=== PATIENT | female | born 1985 | race Caucasian/White ===

== ENCOUNTER 2017-12-17 03:32 | Inpatient (IN) | payer SELFPAY ==
[~2017-12-17] VITALS: Ht 160 cm; Wt 56.7 kg
[2017-12-17] VITALS (14 sets, daily range): BP systolic 101–127; BP diastolic 72–81
[2017-12-17 04:51] LABS: HEMATOCRIT. 53.8 % (36.0-48.0); HEMOGLOBIN. 16.9 g/dL (12.0-16.0); MEAN CORPUSCULAR HEMOGLOBIN 31.4 pg (28.0-32.0); MEAN CORPUSCULAR VOLUME 99.9 fL (81.0-99.0); MEAN PLATELET VOLUME 8.4 fl (7.4-10.4); PLATELET 466 x1000/uL (130-400); RED BLOOD CELL COUNT 5.38 mill/uL (4.2-5.4); RED CELL DISTRIBUTION WIDTH 13.3 % (11.6-14.6)
[2017-12-17 05:07] LABS: PARTIAL THROMBOPLASTIN TIME 30.3 sec (23.4-31.0)
[2017-12-17 05:09] LABS: CHLORIDE 86 mEq/L (98-107)
[2017-12-17 05:15] LABS: BETA HYDROXYBUTYRATE 8.8 mMol/L (0.0-0.3)
[2017-12-17] MEDS ORDERED: INSULIN REGULAR (DRIP) 100 UNITS in SODIUM CHLORIDE 0.9% 100 ML IV ONE ×2 (06:00→06:15)
[2017-12-17] MEDS ORDERED: VANCOMYCIN 1 G PREMIX 200 ML IV ONE (06:00)
[2017-12-17] MEDS ORDERED: SODIUM CHLORIDE 0.9% 1000ML BAG (SEPSIS BOLUS) IV ONE (06:00)
[2017-12-17] MEDS ORDERED: PIPERACILLIN/TAZ 3.375G PREMIX 50 ML IV ONE (06:00)
[2017-12-17] MEDS ORDERED: POTASSIUM PHOS,M-BASIC-D-BASIC 20 MMOL in SODIUM CHLORIDE 0.9% 1,000 ML IV ONE (06:30)
[2017-12-17 06:40] LABS: PLATELET ESTIMATE INCREASED
[2017-12-17 08:32] LABS: CHLORIDE 93 mEq/L (98-107)
[2017-12-17 08:38] LABS: PHOSPHORUS 2.4 mg/dL (2.5-4.9)
[2017-12-17] MEDS ORDERED: SODIUM CHL 0.9% + KCL 20MEQ/L 1,000 ML IV SCH (08:45)
[2017-12-17] MEDS: BLOOD SUGAR DIAGNOSTIC STRIP TEST SCH ×10 (10:00→21:33)
[2017-12-17 10:28] LABS: CLARITY URINE CLOUDY (CLEAR); COLOR URINE YELLOW (YELLOW); KETONES URINE 4+ (NEGATIVE); LEUKOCYTE ESTERASE URINE NEGATIVE (NEGATIVE); NITRITE URINE NEGATIVE (NEGATIVE); OCCULT BLOOD URINE 1+ (NEGATIVE); PROTEIN URINE 1+ (NEGATIVE); SPECIFIC GRAVITY URINE 1.029 (1.005-1.030); UROBILINOGEN URINE 0.2 E.U./dL (0.2-1.0)
[2017-12-17] MEDS ORDERED: DEXTROSE 50% WATER 50ML SYRINGE IV PRN ×4 (10:30→10:45)
[2017-12-17] MEDS ORDERED: BLOOD SUGAR DIAGNOSTIC STRIP TEST SCH (10:30)
[2017-12-17 10:42] LABS: CHLORIDE 98 mEq/L (98-107)
[2017-12-17] MEDS: ONDANSETRON HCL 4MG/2ML INJ IV PRN (12:48)
[2017-12-17 12:51] LABS: CHLORIDE 103 mEq/L (98-107)
[2017-12-17] MEDS ORDERED: MORPHINE SULFATE 2 MG/ML CPJ (NOT FOR IM USE) IV PRN (14:45)
[2017-12-17] MEDS: SODIUM CHLORIDE 0.45% 1,000 ML IV SCH ×2 (15:15→23:00)
[2017-12-17] MEDS: INSULIN REGULAR (DRIP) 100 UNITS in SODIUM CHLORIDE 0.9% 99 ML IV SCH ×2 (15:20→22:53)
[2017-12-17 17:20] LABS: CHLORIDE 108 mEq/L (98-107)
[2017-12-17 21:39] LABS: CHLORIDE 111 mEq/L (98-107)
[2017-12-17 22:32] LABS: PHOSPHORUS 0.6 mg/dL (2.5-4.9)
[2017-12-18] VITALS (22 sets, daily range): BP systolic 94–124; BP diastolic 46–71
[2017-12-18 01:29] LABS: CHLORIDE 111 mEq/L (98-107)
[2017-12-18] MEDS: SODIUM CHLORIDE 0.45% 1,000 ML IV SCH ×3 (05:55→20:45)
[2017-12-18 06:55] LABS: CHLORIDE 110 mEq/L (98-107)
[2017-12-18] MEDS: BLOOD SUGAR DIAGNOSTIC STRIP TEST SCH ×8 (07:45→20:41)
[2017-12-18 09:02] LABS: BASOPHILS % 0.9 % (0.0-2.0); HEMATOCRIT. 36.5 % (36.0-48.0); HEMOGLOBIN. 12.8 g/dL (12.0-16.0); LYMPHOCYTES % 23.7 % (20.0-50.0); MEAN CORPUSCULAR HEMOGLOBIN 31.4 pg (28.0-32.0); MEAN CORPUSCULAR VOLUME 89.8 fL (81.0-99.0); MEAN PLATELET VOLUME 7.7 fl (7.4-10.4); MONOCYTES % 11.8 % (2.0-8.0); NEUTROPHILS % 62.6 % (40.0-76.0); PLATELET 333 x1000/uL (130-400); RED BLOOD CELL COUNT 4.07 mill/uL (4.2-5.4)
[2017-12-18] MEDS: PANTOPRAZOLE SODIUM 40 MG/VIAL IV SCH (10:35)
[2017-12-18 13:16] LABS: CHLORIDE 109 mEq/L (98-107)
[2017-12-18] MEDS ORDERED: DEXTROSE 50% WATER 50ML SYRINGE IV PRN (15:00)
[2017-12-18] MEDS ORDERED: BLOOD SUGAR DIAGNOSTIC STRIP TEST SCH (16:00)
[2017-12-18] MEDS: INSULIN LISPRO 100 UNITS/ML SUBCUT SCH ×2 (17:26→20:52)
[2017-12-18] MEDS: INSULIN GLARGINE UD 100 UNITS/ML SYR SUBCUT SCH (17:28)
[2017-12-18 18:59] LABS: CHLORIDE 105 mEq/L (98-107)
[2017-12-18] MEDS: MORPHINE SULFATE 4 MG/ML CPJ (NOT FOR IM USE) IV PRN (20:51)
[2017-12-19] VITALS: BP 96/57
[2017-12-19] MEDS: BLOOD SUGAR DIAGNOSTIC STRIP TEST SCH ×6 (01:06→20:37)
[2017-12-19] MEDS: INSULIN LISPRO 100 UNITS/ML SUBCUT SCH ×6 (01:22→20:41)
[2017-12-19 03:55] VITALS: BP 116/53
[2017-12-19] MEDS: MORPHINE SULFATE 4 MG/ML CPJ (NOT FOR IM USE) IV PRN ×3 (04:01→16:41)
[2017-12-19 07:55] LABS: HEMATOCRIT. 32.3 % (36.0-48.0); HEMOGLOBIN. 11.4 g/dL (12.0-16.0); MEAN CORPUSCULAR HEMOGLOBIN 31.9 pg (28.0-32.0); MEAN CORPUSCULAR VOLUME 90.1 fL (81.0-99.0); MEAN PLATELET VOLUME 7.9 fl (7.4-10.4); PLATELET 317 x1000/uL (130-400); RED BLOOD CELL COUNT 3.58 mill/uL (4.2-5.4); RED CELL DISTRIBUTION WIDTH 13.4 % (11.6-14.6)
[2017-12-19 08:00] VITALS: BP 110/6
[2017-12-19 08:18] LABS: CHLORIDE 105 mEq/L (98-107)
[2017-12-19] MEDS: PANTOPRAZOLE SODIUM 40 MG/VIAL IV SCH (08:49)
[2017-12-19] MEDS ORDERED: POTASSIUM CHLORIDE 20MEQ TABLET SR PO NR (09:00)
[2017-12-19] MEDS ORDERED: PANTOPRAZOLE SODIUM 40 MG/VIAL IV SCH (09:00)
[2017-12-19] MEDS ORDERED: INSULIN GLARGINE UD 100 UNITS/ML SYR SUBCUT SCH (10:00)
[2017-12-19] MEDS ORDERED: DEXT 5% WATER + KCL 40MEQ/L 1,000 ML IV SCH (10:00)
[2017-12-19] MEDS: INSULIN GLARGINE UD 100 UNITS/ML SYR SUBCUT SCH ×2 (10:20→20:41)
[2017-12-19] MEDS ORDERED: POTASSIUM CHLORIDE INJ 40 MEQ in DEXT 5% WATER 250 ML IV SCH (11:00)
[2017-12-19 11:27] LABS: *AMPHETAMINES SCREEN URINE NEGATIVE (NEGATIVE); *BARBITURATES SCREEN URINE NEGATIVE (NEGATIVE); *BENZODIAZEPINES SCREEN URINE NEGATIVE (NEGATIVE); *COCAINE SCREEN URINE NEGATIVE (NEGATIVE); METHADONE URINE SCREEN NEGATIVE (NEGATIVE)
[2017-12-19 11:31] LABS: CANNABINOID URINE SCREEN NEGATIVE (NEGATIVE); PHENCYCLIDINE URINE SCREEN NEGATIVE (NEGATIVE)
[2017-12-19 11:33] LABS: OPIATES URINE SCREEN PRESUMTIVE POSITIVE (NEGATIVE)
[2017-12-19 12:00] VITALS: BP 108/56
[2017-12-19 16:00] VITALS: BP 105/62
[2017-12-19 19:45] LABS: PLATELET ESTIMATE NORMAL
[2017-12-19 20:00] VITALS: BP 123/73
[2017-12-19] MEDS: ZOLPIDEM TARTRATE 5MG TABLET PO PRN (21:00)
[2017-12-20] VITALS: BP 98/53
[2017-12-20] MEDS: BLOOD SUGAR DIAGNOSTIC STRIP TEST SCH ×7 (00:08→23:51)
[2017-12-20] MEDS: INSULIN LISPRO 100 UNITS/ML SUBCUT SCH ×8 (00:15→23:52)
[2017-12-20] MEDS: MORPHINE SULFATE 4 MG/ML CPJ (NOT FOR IM USE) IV PRN ×2 (02:51→20:49)
[2017-12-20 05:00] VITALS: BP 116/78
[2017-12-20 06:54] LABS: HEMATOCRIT. 31.7 % (36.0-48.0); HEMOGLOBIN. 11.3 g/dL (12.0-16.0); MEAN CORPUSCULAR HEMOGLOBIN 32.1 pg (28.0-32.0); MEAN CORPUSCULAR VOLUME 89.6 fL (81.0-99.0); MEAN PLATELET VOLUME 7.8 fl (7.4-10.4); PLATELET 354 x1000/uL (130-400); RED BLOOD CELL COUNT 3.54 mill/uL (4.2-5.4); RED CELL DISTRIBUTION WIDTH 12.9 % (11.6-14.6)
[2017-12-20 07:34] VITALS: BP 90/50
[2017-12-20 09:17] LABS: CHLORIDE 102 mEq/L (98-107)
[2017-12-20 12:00] VITALS: BP 88/50
[2017-12-20] MEDS ORDERED: POTASSIUM CHLORIDE 20MEQ TABLET SR PO SCH (12:15)
[2017-12-20] MEDS: PANTOPRAZOLE SODIUM 40 MG/VIAL IV SCH ×2 (12:46→20:31)
[2017-12-20] MEDS: INSULIN GLARGINE UD 100 UNITS/ML SYR SUBCUT SCH ×2 (12:47→21:55)
[2017-12-20 12:49] LABS: NUCLEATED RED BLOOD CELLS 1 /100 WBC; PLATELET ESTIMATE NORMAL
[2017-12-20 13:09] LABS: HEMATOCRIT 30.2 % (36.0-48.0); HEMOGLOBIN 10.2 g/dL (12.0-16.0)
[2017-12-20 14:01] LABS: FERRITIN 165 ng/mL (10-291)
[2017-12-20 14:34] LABS: FOLIC ACID (FOLATE) SERUM > 20.00 ng/mL (>5.38); VITAMIN B12 SERUM > 2000.0 pg/mL (211-911)
[2017-12-20 16:00] VITALS: BP 111/61
[2017-12-20] MEDS: FERROUS SULFATE 325MG TABLET PO SCH (18:27)
[2017-12-20] MEDS: DOCUSATE SODIUM 100MG CAPSULE PO SCH (18:27)
[2017-12-20 20:00] VITALS: BP 99/44
[2017-12-20 20:27] LABS: HEMATOCRIT 33.8 % (36.0-48.0); HEMOGLOBIN 11.7 g/dL (12.0-16.0)
[2017-12-20] MEDS: SUCRALFATE 1 G/10 ML UDC PO SCH (20:31)
[2017-12-21] VITALS: BP 112/73
[2017-12-21 01:11] LABS: HEMOGLOBIN 11.3 g/dL (12.0-16.0)
[2017-12-21 04:00] VITALS: BP 116/69
[2017-12-21] MEDS: BLOOD SUGAR DIAGNOSTIC STRIP TEST SCH ×3 (04:00→12:27)
[2017-12-21] MEDS: ZOLPIDEM TARTRATE 5MG TABLET PO PRN (04:01)
[2017-12-21] MEDS: INSULIN LISPRO 100 UNITS/ML SUBCUT SCH ×5 (04:02→12:42)
[2017-12-21] MEDS: SUCRALFATE 1 G/10 ML UDC PO SCH ×2 (06:31→12:39)
[2017-12-21 07:23] LABS: BASOPHILS % 0.5 % (0.0-2.0); EOSINOPHILS % 2.1 % (0.0-5.0); HEMATOCRIT. 31.5 % (36.0-48.0); HEMOGLOBIN. 11.1 g/dL (12.0-16.0); LYMPHOCYTES % 44.5 % (20.0-50.0); MEAN CORPUSCULAR HEMOGLOBIN 32.2 pg (28.0-32.0); MEAN PLATELET VOLUME 7.9 fl (7.4-10.4); MONOCYTES % 11.8 % (2.0-8.0); NEUTROPHILS % 41.1 % (40.0-76.0); PLATELET 404 x1000/uL (130-400); RED BLOOD CELL COUNT 3.46 mill/uL (4.2-5.4); RED CELL DISTRIBUTION WIDTH 13.4 % (11.6-14.6)
[2017-12-21 07:43] LABS: CHLORIDE 101 mEq/L (98-107)
[2017-12-21 08:00] VITALS: BP 91/55
[2017-12-21] MEDS: ONDANSETRON HCL 4MG/2ML INJ IV PRN (08:58)
[2017-12-21] MEDS: DOCUSATE SODIUM 100MG CAPSULE PO SCH (08:59)
[2017-12-21] MEDS: FERROUS SULFATE 325MG TABLET PO SCH ×2 (08:59→12:39)
[2017-12-21] MEDS: PANTOPRAZOLE SODIUM 40 MG/VIAL IV SCH (08:59)
[2017-12-21] MEDS: INSULIN GLARGINE UD 100 UNITS/ML SYR SUBCUT SCH (09:01)
[2017-12-21 12:00] VITALS: BP 90/48
[2017-12-21] MEDS ORDERED: POTASSIUM CHLORIDE 20MEQ TABLET SR PO SCH (12:45)
[2017-12-21 16:33] VITALS: BP 117/64
== END 2017-12-21 17:47 | disposition home or self-care (01) | DRG 720 ==
LOC: ER 03:32 → MICUSO 06:40 → ENRESERV 08:09 → 6WST 12-19 00:02
PROVIDERS: ADMIT Internal Medicine; ATTEND Internal Medicine
DX: A41.9 Sepsis, unspecified organism (principal); E11.10 Type 2 diabetes mellitus with ketoacidosis without coma; E87.8 Other disorders of electrolyte and fluid balance, not elsewhere classified; K31.84 Gastroparesis; K29.71 Gastritis, unspecified, with bleeding; E11.43 Type 2 diabetes mellitus with diabetic autonomic (poly)neuropathy; E87.1 Hypo-osmolality and hyponatremia; R13.10 Dysphagia, unspecified; D64.9 Anemia, unspecified; E87.6 Hypokalemia; F15.90 Other stimulant use, unspecified, uncomplicated; F17.210 Nicotine dependence, cigarettes, uncomplicated; I10 Essential (primary) hypertension; Z79.4 Long term (current) use of insulin; Z71.6 Tobacco abuse counseling
CPT/HCPCS: 36415; 71045; 80048; 80076; 80305; 81025; 82010; 82550; 82553; 82607; 82728; 82746; 82962; 83540; 83550; 83605; 83735; 83880; 84100; 84484; 85014; 85018; 86850; 86900; 93005; 93306; 96365; 96366; 96367; 96368; 99285; C1893; C9113; J1815; J2270; J2405; J2543; J3370; J3480; J3490; J7030; J7050; J7060; A4315